=== PATIENT | female | born 1990 | race Caucasian/White ===

== ENCOUNTER 2022-07-14 19:15 | Inpatient (IN) | payer OTHER ==
[2022-07-14 20:22] VITALS: BMI 39.9
[2022-07-14] MEDS: DEXTROSE 5%-LACTATED RINGERS 1,000 ML IV SCH (21:00)
[2022-07-14] MEDS ORDERED: SODIUM CHLORIDE 500 ML IV STA (21:27)
[2022-07-14] MEDS: MISOPROSTOL 100 MCG TABLET NR SCH (22:05)
[2022-07-14] MEDS ORDERED: LABETALOL HCL 100 MG TABLET (FP) ONE (22:23)
[2022-07-14] MEDS: LABETALOL HCL 100 MG TABLET (FP) PO SCH (22:25)
[2022-07-15] MEDS: MISOPROSTOL 100 MCG TABLET NR SCH ×4 (02:50→17:01)
[2022-07-15] MEDS: DEXTROSE 5%-LACTATED RINGERS 1,000 ML IV SCH (05:20)
[2022-07-15] MEDS ORDERED: morphine SULFATE 4 MG/ML VIAL ONE (07:47)
[2022-07-15] MEDS: morphine SULFATE 4 MG/ML VIAL IVPB ONE (08:00)
[2022-07-15] MEDS: NIFEdipine E.R. 90 MG TABLET PO SCH (09:05)
[2022-07-15] MEDS ORDERED: LABETALOL HCL 100 MG TABLET (FP) ONE ×2 (09:58→21:56)
[2022-07-15] MEDS: LABETALOL HCL 100 MG TABLET (FP) PO SCH ×2 (10:02→22:00)
[2022-07-15] MEDS ORDERED: OXYTOCIN 30 UNITS in 0.9% NS 30 UNIT/500 ML INFUS.BAG IVPB SCH (11:00)
[2022-07-15] MEDS ORDERED: OXYTOCIN 30 UNITS in 0.9% NS 30 UNIT/500 ML INFUS.BAG IVPB ONE (11:00)
[2022-07-15] MEDS ORDERED: SODIUM CHLORIDE 1,000 ML IV STA (11:57)
[2022-07-15] MEDS ORDERED: FENTANYL/BUPIVACAINE/NS/PF - PCEA - 50 ML DISP.SYRIN EP ONE ×2 (12:00→16:27)
[2022-07-15] MEDS ORDERED: BUPIVACAINE HCL/PF 0.25% (2.5MG/ML) 10 ML VIAL ONE ×2 (12:07→18:54)
[2022-07-15] MEDS: FENTANYL/BUPIVACAINE/NS/PF - PCEA - 50 ML DISP.SYRIN EP SCH ×2 (12:20→16:30)
[2022-07-15] MEDS ORDERED: NALOXONE HCL 0.4 MG/ML VIAL IVPUSH PRN (12:32)
[2022-07-15] MEDS ORDERED: OXYTOCIN 20 UNITS in 0.9% NS 20 UNIT/1,000 ML INFUS.BAG IV ONE (19:32)
[2022-07-15] MEDS ORDERED: LIDOCAINE HCL 1% PRESERVATIVE FREE - 30ML VIAL ONE (19:57)
[2022-07-15 20:48] LABS: CORD PCO2 33.9 mmHg (30-78); CORD pH 7.318 (7.14-7.44)
[2022-07-15 20:50] LABS: CORD BASE EXCESS -5.6 mmol/L (0-2); CORD HCO3 20.4 mmHg (20-29); CORD PCO2 41.8 mmHg (30-78); CORD pH 7.307 (7.14-7.44)
[2022-07-15] MEDS ORDERED: ACETAMINOPHEN 325 MG TABLET (FP) PO PRN (20:56)
[2022-07-15] MEDS ORDERED: BENZOCAINE 20% 57 GM BOTTLE TP PRN (20:56)
[2022-07-15] MEDS ORDERED: BENZOCAINE 28 GM HEMORRHOIDAL OINTMENT TP PRN (20:56)
[2022-07-15] MEDS ORDERED: WITCH HAZEL 50% (TUCKS) 40 PAD/JAR PAD TP PRN (20:56)
[2022-07-15] MEDS ORDERED: OXYTOCIN 20 UNITS in 0.9% NS 20 UNIT/1,000 ML INFUS.BAG IV SCH (21:00)
[2022-07-16] MEDS: IBUPROFEN 600 MG TABLET (FP) PO PRN ×4 (04:03→19:51)
[2022-07-16] MEDS: FERROUS SO4 325 MG TABLET (FP) PO SCH ×3 (08:32→17:35)
[2022-07-16 08:36] LABS: BASO % 0.2 % (0-2.0); EOS % 0.6 % (0-4.5); HEMATOCRIT 24.3 % (32.4-45.2); HEMOGLOBIN 8.4 GM/dL (10.7-15.3); LYMPH % 17.2 % (8-40); MCH 30.2 pg (25.7-33.7); MCHC 34.4 g/dl (32.0-36.0); MEAN CELL VOLUME 87.6 fl (80-96); MEAN PLT VOLUME 8.6 fl (7.5-11.1); MONO % 6.1 % (3.8-10.2); NEUT % 75.9 % (42.8-82.8); PLATELET COUNT 162 10^3/uL (134-434); RBC 2.78 M/mm3 (3.60-5.2); RDW 14.3 % (11.6-15.6); WHITE BLOOD COUNT 13.8 K/mm3 (4.0-10.0)
[2022-07-16] MEDS: PRENATAL VITAMINS W/ FOLIC ACID TABLET (FP) PO SCH (09:16)
[2022-07-16] MEDS: LABETALOL HCL 100 MG TABLET (FP) PO SCH ×2 (09:16→21:06)
[2022-07-16] MEDS: NIFEdipine E.R. 90 MG TABLET PO SCH (09:16)
[2022-07-16] MEDS ORDERED: FLU VACC QS2022-23(6MOS UP)/PF 60 MCG/0.5 ML SYRINGE IM ONE (10:00)
[2022-07-16] MEDS ORDERED: SENNOSIDES/DOCUSATE COMBO (SENNA PLUS) TABLET (UD) PO PRN (19:53)
[2022-07-17] MEDS: IBUPROFEN 600 MG TABLET (FP) PO PRN ×2 (06:15→12:19)
[2022-07-17] MEDS: FERROUS SO4 325 MG TABLET (FP) PO SCH ×2 (08:29→12:19)
[2022-07-17 09:33] VITALS: RESP 18; TEMP 97.7
[2022-07-17] MEDS: NIFEdipine E.R. 90 MG TABLET PO SCH (10:49)
[2022-07-17] MEDS: PRENATAL VITAMINS W/ FOLIC ACID TABLET (FP) PO SCH (10:49)
[2022-07-17] MEDS: LABETALOL HCL 100 MG TABLET (FP) PO SCH (11:47)
[2022-07-17 11:48] VITALS: BP 137/84; PULSE 99
== END 2022-07-17 13:14 | disposition home or self-care (01) | DRG 807 ==
LOC: JLDR 19:15 → J3W 07-15 23:01
PROVIDERS: ADMIT Obstetrics & Gynecology Maternal & Fetal Medicine; ATTEND Obstetrics & Gynecology Maternal & Fetal Medicine
PROC: 3E0P7VZ Introduction of Hormone into Female Reproductive, Via Natural or Artificial Opening (ICD-10-PCS; 2022-07-14)
PROC: 3E033VJ Introduction of Other Hormone into Peripheral Vein, Percutaneous Approach (ICD-10-PCS; 2022-07-14)
PROC: 10E0XZZ Delivery of Products of Conception, External Approach (ICD-10-PCS; principal; 2022-07-15)
PROC: 0HQ9XZZ Repair Perineum Skin, External Approach (ICD-10-PCS; 2022-07-15)
DX: O10.92 Unspecified pre-existing hypertension complicating childbirth (principal); Z37.0 Single live birth; O99.214 Obesity complicating childbirth; E66.01 Morbid (severe) obesity due to excess calories; Z3A.39 39 weeks gestation of pregnancy
CPT/HCPCS: 36415; 36600; 59409; 82803; 85025; 88307-TC; G0008; Q2036